=== PATIENT | female | born 1980 | race African-American/Black ===

== ENCOUNTER 2019-03-07 21:47 | Emergency (ER) | payer SELFPAY ==
[2019-03-07] MEDS ORDERED: Ketorolac Tromethamine 30 MG/ML VIAL ONE (23:43)
[2019-03-07] MEDS ORDERED: Ondansetron ODT 4 MG TAB ONE (23:43)
--- NOTE | 2019-03-07 23:46 | RAD ---
Exam:Right foot 3 views HISTORY: Pain. Evaluate for foreign body. COMPARISON: None FINDINGS: No fracture. No cortical irregularity or periosteal reaction. Lisfranc alignment is maintai timmy. No radiopaque foreign body. IMPRESSION: No fracture. No radiopaque foreign body.
== END 2019-03-08 00:53 | disposition home or self-care (01) ==
LOC: ERS 21:47
DX: B07.0 Plantar wart (principal); M25.561 Pain in right knee; F32.9 Major depressive disorder, single episode, unspecified; F25.9 Schizoaffective disorder, unspecified; F17.210 Nicotine dependence, cigarettes, uncomplicated
CPT/HCPCS: 96372; J1885; Q0162

== ENCOUNTER 2019-05-09 18:21 | Emergency (ER) | payer MEDICAID ==
[2019-05-09] MEDS ORDERED: Ondansetron ODT 4 MG TAB ONE (18:51)
[2019-05-09 18:58] LABS: #Eosinphils 0.1 thou/uL (0.0-0.7); #Lymphocytes 1.3 thou/uL (1.20-3.40); #Monocytes 0.7 thou/uL (0.11-0.59); #Neutrophils 16.6 thou/uL (1.40-6.50); %Basophils 0.1 % (0.0-1.0); %Eosinophils 0.4 % (0.0-10.0); %Lymphocytes 7.1 % (21.0-51.0); %Monocytes 3.6 % (0.0-10.0); %Neutrophils 88.8 % (42.0-75.0); Hemoglobin 12.5 g/dL (12.0-16.0); Mean Corpuscular Hemoglobin 24.1 pg (27.0-31.0); Mean Corpuscular Volume 75.4 fL (78.0-98.0); Mean Platelet Volume 9.8 fL (7.4-10.4); Platelet Count 258 thou/uL (130-400); RBC Distribution Width 14.3 % (11.5-14.5); Red Blood Cell (RBC) Count 5.18 mill/uL (4.20-5.40); White Blood Cell (WBC) Count 18.7 thou/uL (4.8-10.8)
[2019-05-09 19:18] LABS: ALT (SGPT) 11 U/L (8-55); AST (SGOT) 14 U/L (5-34); Albumin 4.4 g/dL (3.5-5.0); Alkaline Phosphatase 65 U/L (40-150); Anion Gap 11 mmol/L (10-20); BUN (Urea Nitrogen) 9 mg/dL (7.0-18.7); Bilirubin, Total 0.3 mg/dL (0.2-1.2); Calc. Creatinine Clearance 0 mL/min (70-130); Calcium 9.5 mg/dL (7.8-10.44); Carbon Dioxide 25 mmol/L (22-29); Chloride 108 mmol/L (98-107); Estimated GFR-MDRD 72; Globulin 2.5 g/dL (2.4-3.5); Glucose 124 mg/dL (70-105); Lipase 19 U/L (8-78); Potassium 4.3 mmol/L (3.5-5.1); Protein, Total 6.9 g/dL (6.0-8.3); Sodium 140 mmol/L (136-145)
[2019-05-09 19:24] LABS: Bilirubin Negative (Negative); Blood, Urine Negative (Negative); Clarity Clear (Clear); Glucose, Urine (Dipstick) Normal (Negative); Leukocyte Negative Leu/uL (Negative); Nitrite Negative (Negative); Protein, Urine (Dipstick) Negative (Neg-Trace); Urobilinogen Normal mg/dL (Less than 2)
[2019-05-09 20:10] LABS: BHCG - Serum Negative (NEGATIVE); Pregs Control Background? CLEAR/WHITE (CLR/WHITE); Pregs Control Bar Appear? YES (CONTROL BAR)
--- NOTE | 2019-05-09 20:48 | CT ---
CT ABDOMEN AND PELVIS WITH IV CONTRAST: 05/09/19 PROVIDED CLINICAL HISTORY: Diarrhea and generalized abdominal pain. FINDINGS: The visualized lung bases are free of significant opacity. The solid abdominal organs demonstrate an unremarkable CT appearance. There is no evidence for bowel obstruction. No inflammatory fat stranding, free fluid or free air melissa arent. There are multiple nondilated loops of distal small bowel that demonstrates mural thickening compatib le with enteritis. There is no evidence for appendicitis. The osseous structures demonstrate no concerning lytic or blastic lesions. The regional major vascula r structures appear unremarkable. IMPRESSION: Findings compatible with enteritis. POS: LEISA
[2019-05-09] MEDS ORDERED: Ketorolac Tromethamine 30 MG/ML VIAL ONE (21:05)
[2019-05-09] MEDS ORDERED: cefTRIAXone\\ROCEPHIN 250 MG VIAL ONE (21:22)
[2019-05-09] MEDS ORDERED: Azithromycin 250 MG TAB ONE (21:22)
[2019-05-11 18:57] LABS: Chlamydia by PCR Not Detected (NotDetected); GC by PCR Not Detected (NotDetected)
== END 2019-05-09 22:42 | disposition home or self-care (01) ==
LOC: ERS 18:21
DX: K52.9 Noninfective gastroenteritis and colitis, unspecified (principal); N89.8 Other specified noninflammatory disorders of vagina; F32.9 Major depressive disorder, single episode, unspecified; F25.9 Schizoaffective disorder, unspecified; F17.210 Nicotine dependence, cigarettes, uncomplicated
CPT/HCPCS: 36415; 74177; 80053; 81003; 83690; 84702; 84703; 85025; 87480; 87491; 87510; 87591; 87660; 96365; 96375; J0696; J1885; Q0162